=== PATIENT | female | born 1990 | race Caucasian/White ===

== ENCOUNTER 2016-10-28 22:27 | Emergency (ER) | payer MEDICAID ==
[2016-10-28 23:19] VITALS: BP 109/71
[2016-10-28] MEDS ORDERED: Lidocaine 1% 30 ML SDV INJECT ONE (23:36)
[2016-10-28] MEDS ORDERED: Diphtheria,Pertussis(Acell),Tetanus Vaccine 0.5 ML SDV IM ONE (23:57)
--- NOTE | 2016-10-29 00:01 | EDM.PDOC ---
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 - Related Data Allergies Allergy/AdvReac Type Severity Reaction Status Date / Time No Known Allergies Allergy Verified 10/28/16 23:14 Home Meds: Ambulatory Orders Medication Instructions Recorded Confirmed Aspirin/Acetaminophen/Caffeine 1 each PO Q6H PRN 10/28/16 10/28/16 [Migraine Formula Caplet] Past Medical History Cardiovascular History: Reports: Other (see below) Other Cardiovascular History: ortrhostatic hypotension, vision goes out when she stands up quickly Neurological History: Reports: Migraines Psychiatric History: Reports: Anxiety Social & Family History - Tobacco Use Smoking Status *Q: Never Smoker Second Hand Smoke Exposure: No - Caffeine Use Caffeine Use: Reports: Coffee - Recreational Drug Use Recreational Drug Use: No ED ROS GENERAL - Review of Systems Review Of Systems: ROS reveals no pertinent complaints other than HPI. ED EXAM, SKIN/RASH Exam: See Below Exam Limited By: No limitations General Appearance: alert, WD/WN, anxious, mild distress Ears: hearing grossly normal Throat/Mouth: Normal voice, No airway compromise Head: atraumatic Neck: non-tender, full range of motion Respiratory/Chest: no respiratory distress Cardiovascular: regular rate, rhythm GI/Abdominal: soft, non tender Extremities: other (right thumb tip lac') Neurological: alert, oriented, normal cognition, normal gait, no motor/sensory deficits Psychiatric: anxious Skin: Warm, Dry Location, Skin: upper extremity, right ED SKIN PROCEDURES - Laceration/Wound Repair Right Finger Lac/wound length in cm: 1 (right thumb tip) Appearance: subcutaneous, linear, clean Distal NVT: neuro & vascular intact, no tendon injury Anesthetic type: local Local anesthesia - Lidocaine (Xylocaine): 1% plain Local anesthetic volume: 2cc Skin prep: chlorhexidine (hibiciens) Saline irrigation (cc's): 10 Exploration/Debridement/Repair: wound explored, in a bloodless field, no foreign material found Closed with: sutures Suture size: 4-0 Suture type: nylon, interrupted Sterile dressing applied: nurse Tetanus status addressed: Yes Complications: No Course - Vital Signs Last Recorded V/S: Last Vital Signs Temp 36.9 C 10/28/16 23:17 Pulse 79 10/28/16 23:17 Resp 18 10/28/16 23:17 BP 109/71 10/28/16 23:17 Pulse Ox 95 10/28/16 23:17 - Orders/Labs/Meds Orders: Active Orders 24 hr Category Date Time Status Vaccines to be Administered [RC] PER UNIT ROUTINE Care 10/28/16 23:57 Ordered Diphth,Pertuss(Acell),Tet Vac [Adacel] Med 10/28/16 23:57 Once 0.5 ml IM .ONCE ONE Meds: Medications Discontinued Medications Generic Name Dose Route Start Last Admin Trade Name Yuliana PRN Reason Stop Dose Admin Lidocaine HCl 30 ml 10/28/16 23:36 Xylocaine-Mpf 1% INJECT 10/28/16 23:37 ONETIME ONE Departure - Departure Time of Disposition: 23:59 Disposition: Home, Self-Care 01 Condition: good Clinical Impression: Thumb laceration Qualifiers: Encounter type: initial encounter Laterality: right Qualified Code(s): S61.011A - Laceration without foreign body of right thumb without damage to nail , initial encounter Instructions: Laceration Care, Adult, [id number] Forms: ED Department Discharge Additional Instructions: 1) keep wound clean dry covered 2) wound check Monday 3) suture removal 10 days - My Orders Last 24 Hours: My Active Orders 10/28/16 23:57 Vaccines to be Administered [RC] PER UNIT ROUTINE Diphth,Pertuss(Acell),Tet Vac [Adacel] 0.5 ml IM .ONCE ONE - Assessment/Plan Last 24 Hours: My Active Orders 10/28/16 23:57 Vaccines to be Administered [RC] PER UNIT ROUTINE Diphth,Pertuss(Acell),Tet Vac [Adacel] 0.5 ml IM .ONCE ONE
== END 2016-10-29 00:14 | disposition home or self-care (01) ==
LOC: DL.ED 22:27
DX: S61.011A Laceration without foreign body of right thumb without damage to nail, initial encounter (principal); F41.9 Anxiety disorder, unspecified; Z23 Encounter for immunization; W45.8XXA Other foreign body or object entering through skin, initial encounter
CPT/HCPCS: 12001; 90471; 90715; 99282

== ENCOUNTER 2016-11-25 06:07 | Emergency (ER) | payer MEDICAID ==
[2016-11-25 06:12] VITALS: BP 127/71
[2016-11-25] MEDS ORDERED: Sodium Chloride 0.9% 1,000 ML IV ONE (06:21)
[2016-11-25] MEDS ORDERED: Ondansetron 4 MG/2 ML SDV IV ONE (06:21)
[2016-11-25] MEDS ORDERED: diphenhydrAMINE 50 MG/ML SDV IVPUSH ONE (06:22)
[2016-11-25] MEDS ORDERED: Ketorolac 30 MG/ML SDV IVPUSH ONE (06:23)
--- NOTE | 2016-11-25 06:37 | EDM.PDOC ---
ED HPI GENERAL MEDICAL PROBLEM - General Chief Complaint: Headache Stated Complaint: MIGRAINE [phone] Time Seen by Provider: 11/25/16 06:15 Source of Information: Reports: Patient History Limitations: Reports: No Limitations - History of Present Illness INITIAL COMMENTS - FREE TEXT/NARRATIVE: c/o right sided headache since yesterday at 4pm, worsened at midnight, tried usual method of Excedrin and caffeine and not improving, double vision this am. MCLEOD similar to previous. Generally one per week and one bad headache monthly. Vomited twice this am, Blurred vision Severity: moderate Worsens with: Reports: Movement Associated Symptoms: Reports: headaches Left Parietal Headache Pain Score (Numeric/FACES): 8 - Related Data Allergies Allergy/AdvReac Type Severity Reaction Status Date / Time No Known Allergies Allergy Verified 10/28/16 23:14 Home Meds: Home Meds Aspirin/Acetaminophen/Caffeine [Migraine Formula Caplet] 1 each PO Q6H PRN 10/28 [History] Past Medical History HEENT History: Reports: None Cardiovascular History: Reports: Other (see below) Other Cardiovascular History: ortrhostatic hypotension, vision goes out when she stands up quickly Respiratory History: Reports: None Gastrointestinal History: Reports: None Genitourinary History: Reports: None 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 Musculoskeletal History: Reports: None Neurological History: Reports: Migraines Psychiatric History: Reports: Anxiety Endocrine/Metabolic History: Reports: None Hematologic History: Reports: None Immunologic History: Reports: None Oncologic (Cancer) History: Reports: None Dermatologic History: Reports: None Social & Family History - Tobacco Use Smoking Status *Q: Never Smoker Second Hand Smoke Exposure: No - Caffeine Use Caffeine Use: Reports: Coffee - Recreational Drug Use Recreational Drug Use: No ED ROS GENERAL - Review of Systems Review Of Systems: See Below Constitutional: Reports: Malaise HEENT: Reports: Eye Pain, Vision Change Respiratory: Reports: No Symptoms Cardiovascular: Reports: No Symptoms GI/Abdominal: Reports: No Symptoms : Reports: No Symptoms Musculoskeletal: Reports: No Symptoms Skin: Reports: No Symptoms Neurological: Reports: Headache - Physical Exam Exam: See Below Exam Limited By: No Limitations General Appearance: Alert, Moderate Distress Eye Exam: Bilateral Eye: EOMI, PERRL Ears: Normal External Exam, Normal TMs Nose: Normal Inspection Throat/Mouth: Normal Inspection, Normal Gums Head Exam: Atraumatic, Normocephalic Neck: Normal Inspection, Supple, Non-Tender, Full Range of Motion Respiratory/Chest: No Respiratory Distress, Lungs Clear, Chest Non-Tender Cardiovascular: Normal Peripheral Pulses, Regular Rate, Rhythm GI/Abdominal: Normal Bowel Sounds, Soft, Non-Tender Neuro Exam (Abbreviated): Alert, Oriented, Normal Cognition Back Exam: Normal Inspection Extremities: Normal Inspection Skin Exam: Warm, Dry, Intact, Normal Color, No Rash Course - Vital Signs Last Recorded V/S: Last Vital Signs Temp 97.2 F 11/25/16 06:10 Pulse 91 11/25/16 06:10 Resp 18 11/25/16 06:10 BP 127/71 11/25/16 06:10 Pulse Ox 97 11/25/16 06:10 - Orders/Labs/Meds Orders: Active Orders 24 hr Category Date Time Status Sodium Chloride 0.9% [Normal Saline] 1,000 ml Med 11/25/16 06:21 Ordered IV .BOLUS Medication Orders Sodium Chloride (Normal Saline) 1,000 mls @ 999 mls/hr IV .BOLUS ONE Stop: 11/25/16 07:21 Last Admin: 11/25/16 06:27 Dose: 999 mls/hr Meds: Medications Generic Name Dose Route Start Last Admin Trade Name Freq PRN Reason Stop Dose Admin Sodium Chloride 1,000 mls @ 999 mls/hr 11/25/16 06:21 11/25/16 06:27 Normal Saline IV 11/25/16 07:21 999 mls/hr .BOLUS ONE Administration Discontinued Medications Generic Name Dose Route Start Last Admin Trade Name Freq PRN Reason Stop Dose Admin Diphenhydramine HCl 25 mg 11/25/16 06:22 Benadryl IVPUSH 11/25/16 06:23 ONETIME ONE Ketorolac Tromethamine 30 mg 11/25/16 06:23 Toradol IVPUSH 11/25/16 06:24 ONETIME ONE Ondansetron HCl 4 mg 11/25/16 06:21 Zofran IV 11/25/16 06:22 ONETIME ONE Departure - Departure Time of Disposition: 06:57 Disposition: Home, Self-Care 01 Condition: good Clinical Impression: Migraine - Discharge Information Instructions: Recurrent Migraine Headache, [id number] Forms: ED Department Discharge Additional Instructions: zofran 4mg ODT one every 4 hours s needed for nausea vomiting Increase fluids rest, low activity today follow up in clinic next week with primary care to develo alternative plan for recurrent migraines. - My Orders Last 24 Hours: My Active Orders 11/25/16 06:21 Sodium Chloride 0.9% [Normal Saline] 1,000 ml IV .BOLUS - Assessment/Plan Last 24 Hours: My Active Orders 11/25/16 06:21 Sodium Chloride 0.9% [Normal Saline] 1,000 ml IV .BOLUS
== END 2016-11-25 07:00 | disposition home or self-care (01) ==
LOC: DL.ED 06:07
DX: G43.909 Migraine, unspecified, not intractable, without status migrainosus (principal); F41.9 Anxiety disorder, unspecified; Z79.82 Long term (current) use of aspirin
CPT/HCPCS: 96374; 96375; 99283; J1200; J1885; J2405; J7030

== ENCOUNTER 2021-05-10 21:09 | Emergency (ER) | payer SELFPAY ==
[2021-05-10 21:36] LABS: AMPHETAMINES,URINE NEGATIVE (NEGATIVE); BARBITURATES,URINE NEGATIVE (NEGATIVE); BENZODIAZEPINE,URINE NEGATIVE (NEGATIVE); MDMA (ECSTASY), URINE NEGATIVE (NEGATIVE); METHADONE,URINE NEGATIVE (NEGATIVE); METHAMPHETAMINES,URINE NEGATIVE (NEGATIVE); OPIATES,URINE NEGATIVE (NEGATIVE); OXYCODONE,URINE NEGATIVE (NEGATIVE); PHENCYCLIDINE,URINE NEGATIVE (NEGATIVE); TCA,URINE NEGATIVE (NEGATIVE)
[2021-05-10 21:37] VITALS: BP 129/63; PULSE 110
[2021-05-10 22:18] LABS: ACETAMINOPHEN 0 ug/mL (10-30 (Therapeutic)); ANION GAP 12.9 mEq/L (7-13); CHLORIDE,CL 105 mmol/L (98-107); SODIUM,NA 141 mmol/L (136-145)
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
== END 2021-05-10 23:01 | disposition home or self-care (01) ==
LOC: DL.ED 21:09
DX: F22 Delusional disorders (principal); T50.905A Adverse effect of unspecified drugs, medicaments and biological substances, initial encounter; Z79.82 Long term (current) use of aspirin
CPT/HCPCS: 36415; 80053; 80143; 80179; 80305-QW; 80307; 84703; 85025; 99283